=== PATIENT | female | born 1975 | race Caucasian/White ===

== ENCOUNTER 2018-03-11 07:58 | Day surgery (SDC) | payer OTHER ==
[~2018-03-11] VITALS: Ht 167.6 cm; Wt 70.6 kg
[2018-03-11] MEDS ORDERED: LACTATED RINGERS 1,000 ML IV SCH (08:32)
[2018-03-11 08:36] VITALS: BP 119/79
[2018-03-11 08:46] LABS: HCG UR SG 1.018 (1.003-1.030)
[2018-03-11] MEDS ORDERED: TRAM100T33 PO (08:47)
[2018-03-11] MEDS ORDERED: LIDOCAINE-MPF 1%, 2ML INFIL ONE (09:00)
[2018-03-11] MEDS ORDERED: BUPIVACAINE/PF 0.5% ONE (09:58)
[2018-03-11] MEDS ORDERED: EPINEPHRINE 1 MG/ML, 1ML ONE (09:59)
[2018-03-11] MEDS ORDERED: BACITRACIN OINT 500U/GM, 15 GM ONE (09:59)
[2018-03-11] MEDS ORDERED: BACITRACIN 50,000 UNIT ONE (09:59)
[2018-03-11] MEDS ORDERED: MIDAZOLAM 1 MG/ML, 2ML ONE (10:10)
[2018-03-11] MEDS ORDERED: FENTANYL PF 250 MCG/5ML ONE (10:10)
[2018-03-11] MEDS ORDERED: PROPOFOL 100 ML ONE (10:11)
[2018-03-11] MEDS ORDERED: SUCCINYLCHOLINE 20 MG/ML, 10ML ONE (10:39)
[2018-03-11] MEDS ORDERED: ROCURONIUM 10 MG/ML,10ML ONE (10:39)
[2018-03-11] MEDS ORDERED: GLYCOPYRROLATE 0.2MG/1ML, 5ML ONE (10:39)
[2018-03-11] MEDS ORDERED: PHENYLEPHRINE 10 MG/ML ONE (10:39)
[2018-03-11] MEDS ORDERED: NEOSTIGMINE 1 MG/ML, 10ML ONE (10:39)
[2018-03-11] MEDS ORDERED: LIDOCAINE-MPF 2% ,5ML ONE (10:39)
[2018-03-11] MEDS ORDERED: OXYcodone 5 MG/5 ML ORAL.SOL UDC PO PRN (11:00)
[2018-03-11] MEDS ORDERED: PROCHLORPERAZINE 5 MG/ML, 2ML IV PRN (11:00)
[2018-03-11] MEDS ORDERED: ONDANSETRON ODT 8 MG PO PRN (11:00)
[2018-03-11] MEDS ORDERED: DIAZEPAM 5 MG/ML, 2ML IVPush PRN (11:00)
[2018-03-11] MEDS ORDERED: ACETAMINOPHEN 325 MG TABLET PO PRN (11:00)
[2018-03-11] MEDS ORDERED: MORPHINE SULFATE 4 MG/ML, 1ML IVPush PRN (11:00)
[2018-03-11] MEDS ORDERED: ONDANSETRON 2MG/ML, 2ML IV PRN (11:00)
[2018-03-11] MEDS ORDERED: FENTANYL PF 100 MCG/2ML IV PRN (11:00)
[2018-03-11] MEDS ORDERED: HYDROmorphone 1 MG/ML, 1ML IV PRN (11:00)
[2018-03-11] MEDS ORDERED: CEFAZOLIN 1,000 MG ONE ×2 (12:02)
[2018-03-11] MEDS ORDERED: ONDANSETRON 2MG/ML, 2ML ONE ×2 (12:02)
[2018-03-11] MEDS ORDERED: DEXAMETHASONE 4 MG/ML, 1ML ONE ×2 (12:02)
== END 2018-03-11 15:05 | disposition home or self-care (01) ==
LOC: OUT 07:58
PROVIDERS: ATTEND Neurological Surgery
DX: M51.26 Other intervertebral disc displacement, lumbar region (principal); M51.36 Other intervertebral disc degeneration, lumbar region; Z72.89 Other problems related to lifestyle; Z98.890 Other specified postprocedural states; Z79.899 Other long term (current) drug therapy
CPT/HCPCS: 63030; 72100; 81025; J0171; J0330; J0690; J1100; J2250; J2370; J2405; J2704; J2710; J3010; J3490; J7120